=== PATIENT | female | born 1950 | race Hispanic/Latino ===

== ENCOUNTER → 2016-07-10 | Day surgery (SDC) | payer OTHER, MEDICARE ==
[~2016-07-10] VITALS: Ht 165.1 cm; Wt 76.2 kg
[~2016-07-10] MED LIST: AMITRIPTYLINE H50 M2 PO; AMLODIPINE BES2.5 M1 PO; AUGMENTIN 875-1 EACH PO; BENICAR40 M1 PO; BYSTOLIC10 M1 PO; BYSTOLIC5 M1 PO; CEPHALEXIN500 M3 PO; CIPROFLOXACIN500 M2 PO; CYANOCOBAL1000 MCG/2 IM; DYMISTA NASAL S23 GM NASB; EPIPEN 2-P0.3 MG/0.3 IM; ESCITALOPRAM OX10 MG PO; ESTROGEN-METHY1 EAC1 PO; HYDROXYZINE HCL25 M2 PO; MECLIZINE HCL12.5 M1 PO; MONTELUKAST SOD10 M1 PO; ONDANSETRON HCL4 MG PO; OXYCODONE-ACET1 EACH PO; PANTOPRAZOLE SO40 M1 PO; POTASSIUM CHLO20 ME2 PO; SAVELLA50 M1 PO; TRAMADOL HCL50 M1 PO; ZOLPIDEM TARTRA10 M1 PO; [UNRECOGNIZED DRUG - OTHER] TOP
--- NOTE | 2016-07-15 12:51 | Operative Report ---
Operative/Inv Procedure Report Surgery Date: 07/10/16 Name of Procedure: Iceman tissue home visitor -delayed, periprosthetic and capsulectomy revision reconstructed breasts right Pre-Operative Diagnosis: Status post right-sided mastectomy due to cancer and right breast, previously failed breast reconstruction Post-Operative Diagnosis: Same Estimated Blood Loss: less than 50ml Surgeon/Box Icer: SANDRA MICHAUD MD Anesthesia: general endotracheal tube Operative/Procedure Note Note: Patient was counseled extensively regards to the procedure the alternatives the risks and expected outcomes of relates her request for tissue expansion of the right chest following mastectomy and failed reconstruction due to the need to explant her last implant due to seroma. Talked about the additional risk of skin necrosis open wound infection requiring possibility explant in the device as well as capsular contracture and asymmetry. The patient has multiple scars from multiple surgeries on the right and she seems to be well aware of the expectations. She signed informed consent she was marked in the standing position. She was brought to the operative placed supine on the table Venodyne boots are placed and then general anesthesia and intravenous antibiotics given. The chest was prepped and draped in usual sterile fashion. Previous scar was completely excised. A capsulectomy was done to allow span tension. Copious irrigation was carried out. Revisions were performed by me a capsulorrhaphy laterally and tacking of the inframammary fold to the rib. At that point a tissue home visitor was placed in the submuscular space after copious irrigation no touch technique triple antibiotic with Betadine irrigation. No pathology was identified in the surgical site. There closure was carried out of the incision. Findings: Ends dictation
== END ==
LOC: STS 01:25
DX: Z85.3 Personal history of malignant neoplasm of breast (principal); Z90.11 Acquired absence of right breast and nipple; L90.5 Scar conditions and fibrosis of skin; D68.0 Von Willebrand disease; I10 Essential (primary) hypertension; Z86.14 Personal history of Methicillin resistant Staphylococcus aureus infection; I34.1 Nonrheumatic mitral (valve) prolapse
CPT/HCPCS: J0131; J0690; J0878; J1580; J2250; J2597

== ENCOUNTER → 2017-01-17 | Day surgery (SDC) | payer OTHER, MEDICARE ==
[~2017-01-17] VITALS: Ht 165.1 cm; Wt 78.0 kg
[~2017-01-17] MED LIST changes: +FIORICET 50-301 EACH; +MINOCIN100 MG PO
--- NOTE | 2017-01-17 16:43 | Operative Report ---
Operative/Inv Procedure Report Surgery Date: 01/17/17 Name of Procedure: Change right breast tissue water mangle tender for permanent gel prosthesis. Fat graft to Left breast Liposuction trunk with fat transfer to buttock Pre-Operative Diagnosis: Status post right-sided mastectomy tissue water mangle tender currently. Left-sided breast reconstruction with subcutaneous deformities hypoplasia of the buttocks Post-Operative Diagnosis: same Estimated Blood Loss: scant (250) Surgeon/Naturopath: SANDRA MICHAUD MD Anesthesia: general endotracheal tube Operative/Procedure Note Note: Patient was counseled regards to the procedure the alternatives risks and expected outcomes as relates to her request for surgical intervention for exchange of right breast tissue water mangle tender for permanent breast prosthesis. In addition she has subcutaneous deformities of the left breast as currently had also received a mastectomy and has a permanent breast prosthesis in place. In irregularities of the soft tissues. We talked and the patient has accepted exchange of the right side water mangle tender for breast implant capsulectomy revision of the reconstructed breast in regards to inframammary fold placement and lateral pocket suturing. As well as discussed fat grafting to the left breast to reduce to subcutaneous abnormalities. He talked about infection the fact the patient develops the Service on multiple occasions possibility of long-lasting seroma leading to an infection there and possibility of the need of explantation. Using the fat what remains of the injected into the buttocks. Patient was marked in the standing position shows her of her back and anteriorly the areas of would be treated those that would not. Signed informed consent was taken to the operative placed supine on the operating table. Venodyne boots are placed and then general endotracheal anesthesia was established and the patient was given antibiotics intravenously as she has been receiving preoperatively by her infectious disease physician. Tumescent fluid in standard formulation was placed on the abdominal wall and liposuction was performed for approximately 900 mL. She was then turned to the prone position liposuction was carried out of the upper and lower back the fat was processed [place] reserve for the breast and the remainder was injected into each buttock in the subcutaneous layer. Incisions were closed in 2 layers. The patient was then put back with new instrumentation prep and drape the breasts were then treated in the following fashion. The patient was having thinning of the scar due to expansion in this entire scar was removed into healthy skin. Software Quality Analyst was removed and a capsulectomy was performed and a very thick dense capsule. Lateral reduction of the pocket size was then done with nonabsorbable suture. Inframammary fold was tacked in a higher position with these nonoperative observable sutures. Uses 650 mL implant was placed with multiple layer sutures. First layer of suturing was done with the implant out of the pocket. Of note technique Rhys, multiple chest changes Betadine in triple antibiotic irrigation reprepped 7 the skin was performed to reduce contamination. 60 mL of fat was also injected into the left breast in the subcutaneous plane with a single stab incision. Dictation
== END ==
LOC: STS 04:19
DX: Z85.3 Personal history of malignant neoplasm of breast (principal); Z90.11 Acquired absence of right breast and nipple; N65.0 Deformity of reconstructed breast; L90.5 Scar conditions and fibrosis of skin; E65 Localized adiposity; D68.0 Von Willebrand disease; I10 Essential (primary) hypertension
CPT/HCPCS: C1789; J0171; J0690; J0878; J1580; J2250; J2405; J2597

== ENCOUNTER → 2017-10-24 | Day surgery (SDC) | payer OTHER, MEDICARE ==
[~2017-10-24] VITALS: Ht 165.1 cm; Wt 78.5 kg
[2017-10-24 08:44] LABS: ABSOLUTE BASOPHIL COUNT 0 /CUMM (0.0-0.2); ABSOLUTE EOSINOPHIL COUNT 0.1 /CUMM (0.0-0.7); ABSOLUTE GRANULOCYTE CT 6.2 /CUMM (1.4-6.5); ABSOLUTE LYMPH COUNT 1.4 /CUMM (1.2-3.4); ABSOLUTE MONOCYTE COUNT 0.8 /CUMM (0.10-0.60); BASOPHIL % 0.2 % (0.0-2.0); EOSINOPHIL % 1.4 % (0-5); HEMATOCRIT 39.8 % (37-47); MEAN CORPUSCULAR HGB 29.7 PG (27.0-31.0); MEAN CORPUSCULAR HGB CONC 34.1 G/DL (33.0-37.0); MEAN CORPUSCULAR VOLUME 87.1 FL (81.0-99.0); MEAN PLATELET VOLUME 7.6 FL (7.4-10.4); PLATELET COUNT 259 /CUMM (130-400); RBC DISTRIBUTION WIDTH 18.3 % (11.5-14.5); RED BLOOD CELL CT 4.56 /CUMM (4.20-5.40); WHITE BLOOD CELL COUNT 8.5 /CUMM (4.8-10.8)
--- NOTE | 2017-10-30 14:56 | Operative Report ---
Operative/Inv Procedure Report Surgery Date: 10/24/17 Name of Procedure: Revision bilateral reconstructed breast, exchange left sided breast implant, capsulectomy left breast Pre-Operative Diagnosis: Capsule contracture left breast insufficient soft tissue coverage right breast implant asymmetry inframammary folds Post-Operative Diagnosis: Same Estimated Blood Loss: 50ml to 100ml Surgeon/Filling Machine Operator: Krystian Peñaloza MD Anesthesia: general endotracheal tube Operative/Procedure Note Note: Patient was counseled regards the procedure the alternatives risks and expected outcomes as relates to request for surgical intervention to treat symptomatic capsule more contracture of the left breast with elevation of the fold, possibility of soft tissue coverage right breast implant with visible implant folding. She has requested fat grafting of the right breast adjustment of the left inframammary fold exchange of the implant and capsulectomy. We talked about the risks which included but were not limited to infection bleeding pain numbness need for explantation and palpable implant. Talked about injury to surrounding structures revealed liposuction technique. Talked about fat F Fat atrophy and oral cysts. Informed consent was signed. She was marked in the standing position for an adequate donor site which was on the back. Fluids and borders of the breast foot prints were marked. She signed informed consent patient was taken to the operating placed supine on the table Venodyne boots are placed and general anesthesia was established intravenous antibiotics are given. She was started in the supine position appropriately padded and then turned into the prone position appropriately padded. The back was prepped and draped in usual sterile fashion. Tumescent fluid was instilled in the usual concentration of fat was harvested. Incisions were closed with 2 layers. Patient was then turned into the supine position with a chest was prepped and draped in usual sterile fashion. 2 instrumentation was used. The left sided inframammary incision was opened. Old was released. The capsule was entered and the implant was removed which appeared intact. Capsulectomy was performed. No pathology was seen within the capsule. Implant was placed within using the no touch technique Rhys funnel multiple glove changes skin preparation and nipple Liz. Patient was put in the sitting position after inframammary fold revision with permanent sutures following the capsulectomy. After 3 layer closure the fat had been prepared and was injected into the right breast subcutaneous space throughout the periphery of the breast for a total of approximately 100 mL of dry fat. Incisions closed with glue.
== END ==
LOC: STS 02:23
PROVIDERS: Surgery Plastic and Reconstructive Surgery
DX: Z85.3 Personal history of malignant neoplasm of breast (principal); T85.44XA Capsular contracture of breast implant, initial encounter; N64.89 Other specified disorders of breast; Y83.8 Other surgical procedures as the cause of abnormal reaction of the patient, or of later complication, without mention of misadventure at the time of the procedure; D68.0 Von Willebrand disease; D50.9 Iron deficiency anemia, unspecified; I10 Essential (primary) hypertension; R06.00 Dyspnea, unspecified; Z22.322 Carrier or suspected carrier of Methicillin resistant Staphylococcus aureus
CPT/HCPCS: 36415; C1789; J0131; J0171; J0690; J1580; J2001; J2250; J2405; J3370; J3490